=== PATIENT | male | born 1950 | race Two or more races ===

== ENCOUNTER 2017-06-05 10:00 | Inpatient (IN) | payer MEDICARE, MEDICAID ==
[~2017-06-05] VITALS: Ht 182.9 cm; Wt 70.8 kg
[~2017-06-05 10:00] MED LIST: ASPI-605 PO; CILO100T21 PO; CLOP75TA2 PO; DILT120T2 PO; GABA300C PO; METO50TA3 PO; NAPR500T3 PO; NITR0.4T SL
--- NOTE | 2017-06-05 10:10 | NUR ---
PT TO ED ROOM 03. CHEST PAIN X 2 DAYS. A/A/O. VS WNL. AMBULATORY W/ STEADY GAIT. CHANGED TO GOWN. CONNECTED TO MONITOR. MD AT BEDSIDE FOR EVAL. EKG AT BEDSIDE.
[2017-06-05] MEDS ORDERED: METO-304 PO (10:22)
[2017-06-05] MEDS ORDERED: CLON0.1T PO (10:22)
[2017-06-05] MEDS ORDERED: FOLI1TAB16 PO (10:22)
[2017-06-05] MEDS ORDERED: ATOR20TA PO (10:22)
[2017-06-05] MEDS ORDERED: MECL-102 PO (10:22)
[2017-06-05] MEDS ORDERED: LOSA50TA21 PO (10:22)
[2017-06-05 10:51] LABS: BASOPHILS % (AUTO) 0.6 % (0.0-2.0); EOSINOPHILS # (AUTO) 0.1 /CMM (0.0-0.7); EOSINOPHILS % (AUTO) 0.8 % (0.0-6.0); HEMATOCRIT 43 % (39-51); HEMOGLOBIN 14.3 g/dL (13.5-17.5); LYMPHOCYTES # (AUTO) 1.5 /CMM (0.8-4.8); LYMPHOCYTES % (AUTO) 23.2 % (20.0-44.0); MEAN CORPUSCULAR HEMOGLOBIN 30 PG (26.0-33.0); MEAN CORPUSCULAR HGB CONC 33 g/dl (31.0-36.0); MEAN CORPUSCULAR VOLUME 92 fL (80-96); MONOCYTES # (AUTO) 0.5 /CMM (0.1-1.30); MONOCYTES % (AUTO) 7.3 % (2.0-12.0); NEUTROPHILS # (AUTO) 4.5 /CMM (1.8-8.9); NEUTROPHILS % (AUTO) 68.1 % (43.0-81.0); PLATELET COUNT (AUTO) 218 /CMM (150-450); RDW COEFFICIENT OF VARIATION 12.6 (11.5-15.0); RED BLOOD CELL COUNT(AUTO) 4.73 MIL/uL (4.5-6.0); WHITE BLOOD COUNT (AUTO) 6.6 K/uL (4.3-11.0)
[2017-06-05] MEDS ORDERED: NITROGLYCERIN PACKET 1 GM PACKET ONE (10:53)
[2017-06-05] MEDS ORDERED: ASPIRIN 325 MG TABLET ONE (10:53)
[2017-06-05] MEDS ORDERED: ASPIRIN 325 MG TABLET PO ONE (11:00)
[2017-06-05] MEDS ORDERED: NITROGLYCERIN PACKET 1 GM PACKET TD ONE (11:00)
[2017-06-05 11:01] LABS: CALCIUM, SERUM 8.6 mg/dL (8.5-10.1); CARBON DIOXIDE 25 mmol/L (21-32); CHLORIDE 107 mmol/L (98-107); CREATININE 0.9 mg/dL (0.6-1.3); GLUCOSE 93 mg/dL (74-106); POTASSIUM 4.1 mmol/L (3.5-5.1); SODIUM SERUM 140 mmol/L (136-145); UREA NITROGEN, BLOOD 13 mg/dL (7-18)
[2017-06-05 11:05] LABS: INR 1.07 (0.87-1.13); PROTHROMBIN TIME 11.1 SECS (9.5-12.7)
[2017-06-05 11:09] LABS: TROPONIN I < 0.017 ng/mL (0.00-0.056)
[2017-06-05 11:14] LABS: B-TYPE NATRIURETIC PEPTIDE 419 PG/ML (0-125)
--- NOTE | 2017-06-05 11:30 | NUR ---
CALLED DR DALTON, TRANSFERRED CALL TO DR BOBBY
--- NOTE | 2017-06-05 12:01 | NUR ---
REPORT GIVEN TO TELE NURSE Rhoda [id number]. ACCEPTED BY DR DALTON
[2017-06-05] MEDS: NAPROXEN 500 MG TABLET PO SCH ×2 (12:30→17:25)
[2017-06-05] MEDS ORDERED: MECLIZINE HCL 25 MG TABLET PO PRN (12:30)
[2017-06-05] MEDS: METOPROLOL SUCCINATE 50 MG TAB.SR.24H PO SCH (12:30)
[2017-06-05] MEDS: ASPIRIN EC 81 MG TABLET.DR PO SCH (12:30)
--- NOTE | 2017-06-05 12:30 | NUR ---
MS RN RECEIVED ON BED,NEW ADMISSION FROM ER,AWAKE,ALERT,ORIENTED X4,NOT IN ANY FORM OF DISTRESS, CAME IN W/ CC OF CHEST PAIN, W/C PATIENT DENIES AT THIS TIME, FAMILY AT BEDSIDE, NSR ON MONITOR, WILL MONITOR PATIENT'S CONDITION.
[2017-06-05 13:00] VITALS: BP 132/73
[2017-06-05] MEDS: CLONIDINE HCL 0.1 MG TABLET PO SCH ×2 (13:00→17:00)
--- NOTE | 2017-06-05 14:00 | NUR ---
MS RN WAS SEEN BY DR. BRI Wilks/ ORDERS MADE AND CARRIED OUT.
[2017-06-05 16:00] VITALS: BP 126/67
--- NOTE | 2017-06-05 16:00 | NUR ---
MS RN WAS SEEN BY TERRIE FOR KAI STRESS TEST, EXPLAINED TO FAMILY AND PATIENT, AWARE FOR NPO AFTER MIDNIGHT, CONSENT SIGNED.
[2017-06-05] MEDS: FOLIC ACID 1 MG TABLET PO SCH (17:21)
[2017-06-05] MEDS: LOSARTAN POTASSIUM 50 MG TABLET PO SCH (17:25)
[2017-06-05] MEDS: CLOPIDOGREL BISULFATE 75 MG TABLET PO SCH (17:25)
--- NOTE | 2017-06-05 18:10 | NUR ---
ms ani darby called for additional orders and carried out.
--- NOTE | 2017-06-05 18:41 | NUR ---
MS RN ON BED, NO DISTRESS NOTED,ALL NEEDS ATTENDED.
--- NOTE | 2017-06-05 19:40 | NUR ---
RN OPENING NOTES RECEIVED REPORT FROM TAMANNA RNKARLA. FOUND Pt AWAKE, RESTING IN BED. FAMILY VISITING AT BEDSIDE. NO S/S OF ACUTE DISTRESS OR SOB NOTED. NO C/O PAIN OR CHEST PAIN AT THIS TIME. IV ACCESS ON RAC #18G, SL. SAFETY MEASURES IN PLACE. BED LOW, LOCKED, HOB ELEVATED, SIDE RAILS UP, CALL LIGHT AND BEDSIDE TABLE WITHIN REACH. WILL CONTINUE TO MONITOR Pt THROUGHOUT THE NIGHT FOR SAFETY.
[2017-06-05 20:00] VITALS: BP 154/90
[2017-06-05] MEDS ORDERED: ATORVASTATIN 10 MG TABLET PO SCH (22:00)
[2017-06-05] MEDS ORDERED: TAMSULOSIN 0.4 MG CAP.SR.24H PO SCH (22:00)
[2017-06-06] VITALS: BP 128/84
[2017-06-06 04:00] VITALS: BP 117/71
--- NOTE | 2017-06-06 06:53 | NUR ---
RN CLOSING NOTES NO SIGNIFICANT CHANGES IN Pt's CONDITION. Pt IS STABLE. NO S/S OF ACUTE DISTRESS OR SOB NOTED. ALL NEEDS MET AND ATTENDED TO. SAFETY MEASURES CARRIED OUT. TELE READING SB/SR 58-60's. WILL ENDORSE TO DAYSHIFT RN FOR Pt's SAMANTHA.
[2017-06-06 08:00] VITALS: BP 121/74
[2017-06-06] MEDS ORDERED: REGADENOSON 0.4 MG/5 ML DISP.SYRIN IVP ONE (09:00)
[2017-06-06] MEDS: NAPROXEN 500 MG TABLET PO SCH (10:20)
[2017-06-06] MEDS: LOSARTAN POTASSIUM 50 MG TABLET PO SCH (10:20)
[2017-06-06] MEDS: FOLIC ACID 1 MG TABLET PO SCH (10:21)
[2017-06-06] MEDS: METOPROLOL SUCCINATE 50 MG TAB.SR.24H PO SCH (10:21)
[2017-06-06] MEDS: ASPIRIN EC 81 MG TABLET.DR PO SCH (10:21)
[2017-06-06] MEDS: CLOPIDOGREL BISULFATE 75 MG TABLET PO SCH (10:22)
[2017-06-06 10:23] VITALS: BP 121/74
[2017-06-06] MEDS: CLONIDINE HCL 0.1 MG TABLET PO SCH ×2 (10:23→13:00)
[2017-06-06 13:39] LABS: ABG BASE EXCESS 2.3 mmol/L; ABG OXYGEN SATURATION 93.4 % (92.0-98.5); ABG PCO2 37.2 mmHg (35.0-45.0); ABG PH 7.461 (7.350-7.450); ABG PO2 67.8 mmHg (75.0-100.0); AaDO2 37.4 mmHg; COHb 0.7 % (0.5-1.5); MetHb 0.6 % (0.0-1.5); O2Hb 92.2 % (94.0-97.0); SITE, ABG Right Radial; VENT MODE, BG ROOM AIR
--- NOTE | 2017-06-06 15:34 | NUR ---
RN Notes Spoke with Dr Barba and reviewed with him ABG result, chest xray rib series and thoraco spine xray. Per VIANEY Lal, Dr Ruggiero said his lexiscan is negative. Per Dr Barba to discharge patient and let him visit office in 2 days. Patient and daughter made aware.
--- NOTE | 2017-06-06 15:54 | NUR ---
RN Notes Discharge instruction given on home medication and follow up with primary care physician in 2 days, verbalized understanding. Discharge paper signed. IV access removed and secured with dressing. Claimed no belongings were missing. Left [facility] via wheelchair accompanied by family in stable condition. No chest pain. Assisted to the lobby. Patient thankful of the care.
== END 2017-06-06 16:00 | disposition home or self-care (01) | DRG 313 ==
LOC: ER 10:01 → TELE 12:08 → MED 06-06 10:26
PROVIDERS: ADMIT Family Medicine; ATTEND Family Medicine
DX: R07.89 Other chest pain (principal); F41.9 Anxiety disorder, unspecified; E78.5 Hyperlipidemia, unspecified; I50.9 Heart failure, unspecified; I27.2 Other secondary pulmonary hypertension; I25.10 Atherosclerotic heart disease of native coronary artery without angina pectoris; J44.9 Chronic obstructive pulmonary disease, unspecified; K21.9 Gastro-esophageal reflux disease without esophagitis; Z95.1 Presence of aortocoronary bypass graft; G47.33 Obstructive sleep apnea (adult) (pediatric); I11.0 Hypertensive heart disease with heart failure; H91.90 Unspecified hearing loss, unspecified ear; N40.0 Benign prostatic hyperplasia without lower urinary tract symptoms; M54.10 Radiculopathy, site unspecified
CPT/HCPCS: 36415; 36600; 71010-TC; 71111-TC; 72074-TC; 80048-TC; 83880; 84484-TC; 85025-TC; 85730-TC; 87081-TC; 93307-TC; A4606; A9502; J2785; Z7610

== ENCOUNTER 2019-06-27 13:06 | Emergency (ER) | payer MEDICARE, MEDICAID ==
[~2019-06-27] VITALS: Ht 180.3 cm; Wt 90.3 kg
[~2019-06-27 13:06] MED LIST changes: +ATOR20TA PO; -CILO100T21 PO; +CLON0.1T PO; +CLOP75TA15 PO; -CLOP75TA2 PO; -DILT120T2 PO; +FOLI1TAB16 PO; -GABA300C PO; +LOSA50TA39 PO; +MECL-102 PO; +METO-357 PO; -METO50TA3 PO; +NAPR-1009 PO; -NAPR500T3 PO; -NITR0.4T SL
[2019-06-27 13:25] VITALS: BP 109/74
--- NOTE | 2019-06-27 13:33 | NUR ---
KALLI CUELLO AT BEDSIDE FOR EVAL.
--- NOTE | 2019-06-27 13:54 | NUR ---
Patient discharged to home in stable condition. Written and verbal after care instructions given. Patient verbalizes understanding of instruction.
== END 2019-06-27 13:54 | disposition home or self-care (01) ==
LOC: ER 13:16
DX: L30.8 Other specified dermatitis (principal); R21 Rash and other nonspecific skin eruption; I10 Essential (primary) hypertension; I25.10 Atherosclerotic heart disease of native coronary artery without angina pectoris; I25.2 Old myocardial infarction; E78.5 Hyperlipidemia, unspecified; K21.9 Gastro-esophageal reflux disease without esophagitis; Z95.1 Presence of aortocoronary bypass graft; Z79.82 Long term (current) use of aspirin